=== PATIENT | female | born 1960 | race Caucasian/White ===

== ENCOUNTER 2016-12-12 11:04 | Emergency (ER) | payer MEDICARE, MEDICAID ==
[~2016-12-12] VITALS: Ht 147.3 cm; Wt 73.9 kg
[~2016-12-12 11:04] MED LIST: ALBU1.25 NEB; ALBU8.5H3 INH; PARO30TA45 PO
[2016-12-12 11:45] LABS: PATH.CAST-FLAG NOT PRESENT; SPERM-FLAG NOT PRESENT; SRC-FLAG NOT PRESENT; XTAL-FLAG NOT PRESENT; YLC-FLAG NOT PRESENT
[2016-12-12] MEDS ORDERED: SODIUM CHLORIDE FLUSH 10ML SYR IVF ONE (12:30)
[2016-12-12] MEDS ORDERED: SODIUM CHLORIDE 0.9% 1,000ML IVBOLUS ONE (12:30)
[2016-12-12] MEDS ORDERED: ONDANSETRON 2MG/ML, 2ML IVPush ONE (12:30)
[2016-12-12] MEDS ORDERED: ONDANSETRON 2MG/ML, 2ML ONE (13:03)
[2016-12-12] MEDS ORDERED: PARO20TA55 PO (13:09)
[2016-12-12 13:14] LABS: PATH.CAST-FLAG NOT PRESENT; SPERM-FLAG NOT PRESENT; SRC-FLAG NOT PRESENT; XTAL-FLAG NOT PRESENT; YLC-FLAG NOT PRESENT
[2016-12-12 13:25] LABS: HEMOGLOBIN 14.1 g/dL (11.7-16.4)
[2016-12-12 13:39] LABS: BLOOD UREA NITROGEN 16 mg/dL (7-18)
[2016-12-12 13:42] LABS: ASPARTATE AMINO TRANSFERASE 19 U/L (15-37)
[2016-12-12] MEDS ORDERED: OMNIPAQUE 350 MG/ML, 100ML BOTTLE ONE (15:52)
[2016-12-12 16:03] VITALS: BP 118/73
== END 2016-12-12 16:42 | disposition home or self-care (01) ==
LOC: ED 16:36
DX: N39.0 Urinary tract infection, site not specified (principal)
CPT/HCPCS: 36415; 74177; 80053; 81001; 83690; 85025; 87086; 96361; 96374; 99285; J2405; J7030; Q9967

== ENCOUNTER 2018-01-08 01:43 | Emergency (ER) | payer MEDICAID, MEDICARE ==
[~2018-01-08] VITALS: Ht 147.3 cm; Wt 75.9 kg
[~2018-01-08 01:43] MED LIST changes: -ALBU8.5H3 INH; +ALBU8.5H8 INH; +PARO20TA98 PO
[2018-01-08 01:45] VITALS: BP 125/79
[2018-01-08] MEDS ORDERED: ONDANSETRON ODT 8 MG PO ONE (02:00)
[2018-01-08] MEDS ORDERED: MAALOX/HYOSCYAMINE/LIDOCAINE 45 ML BTL PO ONE (02:00)
[2018-01-08] MEDS ORDERED: MAALOX/HYOSCYAMINE/LIDOCAINE 45 ML BTL ONE (02:02)
[2018-01-08] MEDS ORDERED: ONDANSETRON ODT 8 MG ONE (02:02)
== END 2018-01-08 02:14 | disposition home or self-care (01) ==
LOC: ED 02:06
DX: R11.2 Nausea with vomiting, unspecified (principal); R19.7 Diarrhea, unspecified; E78.00 Pure hypercholesterolemia, unspecified; F17.200 Nicotine dependence, unspecified, uncomplicated; Z90.49 Acquired absence of other specified parts of digestive tract
CPT/HCPCS: 99283; Q0162

== ENCOUNTER 2018-10-20 10:40 | Emergency (ER) | payer MEDICARE, MEDICAID ==
[~2018-10-20] VITALS: Ht 147.3 cm; Wt 73.0 kg
[2018-10-20 10:57] VITALS: BP 103/67
[2018-10-20] MEDS ORDERED: KETOROLAC 30 MG/1 ML ONE (11:10)
[2018-10-20] MEDS ORDERED: METHOCARBAMOL 750 MG TABLET ONE (11:10)
--- NOTE | 2018-10-20 11:16 | NUR ---
PT MEDICATED PER MAR FOR NECK PAIN. WILL CONTINUE TO MONITOR
[2018-10-20] MEDS ORDERED: METHOCARBAMOL 750 MG TABLET PO ONE (11:30)
[2018-10-20] MEDS ORDERED: KETOROLAC 30 MG/1 ML IM ONE (11:30)
== END 2018-10-20 12:08 | disposition home or self-care (01) ==
LOC: ED 11:36
DX: S39.012A Strain of muscle, fascia and tendon of lower back, initial encounter (principal); E78.5 Hyperlipidemia, unspecified; E78.00 Pure hypercholesterolemia, unspecified; M54.41 Lumbago with sciatica, right side; F17.200 Nicotine dependence, unspecified, uncomplicated; Z90.49 Acquired absence of other specified parts of digestive tract; Z90.710 Acquired absence of both cervix and uterus; X58.XXXA Exposure to other specified factors, initial encounter; Z88.5 Allergy status to narcotic agent; Y93.89 Activity, other specified; Y92.89 Other specified places as the place of occurrence of the external cause; Y99.8 Other external cause status
CPT/HCPCS: 72110; 73502; 96372; 99283; J1885; J7512

== ENCOUNTER 2018-12-05 00:40 | Emergency (ER) | payer MEDICARE, MEDICAID ==
[~2018-12-05] VITALS: Ht 147.3 cm; Wt 76.2 kg
[2018-12-05 00:43] VITALS: BP 132/85
[2018-12-05] MEDS ORDERED: ALBUTEROL SULFATE 2.5 MG/3 ML NPPB ONE (01:30)
[2018-12-05 01:32] LABS: BASOPHILS # (AUTO) 0.06 x10^3/uL (0-0.1); BASOPHILS % (AUTO) 1 % (0-1); EOSINOPHILS % (AUTO) 1 % (1-7); LYMPHOCYTES # (AUTO) 3.65 x10^3/uL (1-3.4); LYMPHOCYTES % (AUTO) 48 % (22-44); MD NO; MEAN CORPUSCULAR HEMOGLOBIN 31.3 pg (27.0-34.8); MEAN CORPUSCULAR HGB CONC 34.1 g/dL (32.4-35.8); MEAN CORPUSCULAR VOLUME 91.8 fL (80-100); MONOCYTES # (AUTO) 0.56 x10^3/uL (0.2-0.8); MONOCYTES % (AUTO) 7 % (2-9); NEUTROPHILS # (AUTO) 3.19 x10^3/uL (1.8-6.8); NEUTROPHILS % (AUTO) 42 % (42-75); PLATELET COUNT 282 x10^3/uL (130-400); RED BLOOD COUNT 4.34 x10^6/uL (3.82-5.3); RED CELL DISTRIBUTION WIDTH 13.2 % (9.6-15.2)
[2018-12-05 01:43] LABS: ALANINE AMINOTRANSFERASE 23 U/L (12-78); ALBUMIN 3.6 g/dL (3.4-5.0); ANION GAP 5 mmol/L (5-15); CALCIUM 8.5 mg/dL (8.5-10.1); CHLORIDE 108 mmol/L (98-107); CREATININE 0.72 mg/dL (0.55-1.02)
[2018-12-05 01:47] LABS: ALKALINE PHOSPHATASE 104 U/L (45-117); BILIRUBIN,TOTAL 0.1 mg/dL (0.2-1.0); TOTAL PROTEIN 6.5 g/dL (6.4-8.2); TROPONIN I < 0.015 ng/mL (0.000-0.045)
--- NOTE | 2018-12-05 02:14 | NUR ---
PT IN GOWN BLOOD AND URINE TO LAB AWAITING RESULTS AND ERP RECHECK.
[2018-12-05 02:22] LABS: MICROSCOPIC AUTO
[2018-12-05 02:30] LABS: CULTURE INDICATED? YES
== END 2018-12-05 02:55 | disposition home or self-care (01) ==
LOC: ED 02:53
DX: R05 Cough (principal); E78.5 Hyperlipidemia, unspecified; E78.00 Pure hypercholesterolemia, unspecified; Z90.49 Acquired absence of other specified parts of digestive tract; Z90.710 Acquired absence of both cervix and uterus; F17.200 Nicotine dependence, unspecified, uncomplicated
CPT/HCPCS: 36415; 71045; 80053; 81001; 83690; 84484; 85025; 87086; 93005; 94640; 99284; J7613

== ENCOUNTER 2019-09-30 19:28 | Emergency (ER) | payer MEDICAID, MEDICARE, OTHER ==
[~2019-09-30] VITALS: Ht 147.3 cm; Wt 75.9 kg
[2019-09-30 19:31] VITALS: BP 132/91
[2019-09-30] MEDS ORDERED: FAMOTIDINE 20 MG TABLET ONE (20:13)
[2019-09-30] MEDS ORDERED: ONDANSETRON ODT 4 MG ONE (20:13)
[2019-09-30] MEDS ORDERED: MAALOX/HYOSCYAMINE/LIDOCAINE 45 ML BTL ONE (20:13)
[2019-09-30 20:21] LABS: BASOPHILS % (AUTO) 0 % (0-1); EOSINOPHILS # (AUTO) 0.05 x10^3/uL (0-0.4); EOSINOPHILS % (AUTO) 1 % (1-7); LYMPHOCYTES # (AUTO) 1.73 x10^3/uL (1-3.4); LYMPHOCYTES % (AUTO) 21 % (22-44); MD NO; MEAN CORPUSCULAR HEMOGLOBIN 31.6 pg (27.0-34.8); MEAN CORPUSCULAR HGB CONC 34.2 g/dL (32.4-35.8); MEAN CORPUSCULAR VOLUME 92.4 fL (80-100); MEAN PLATELET VOLUME 6.7 fL (7.4-10.4); MONOCYTES # (AUTO) 0.45 x10^3/uL (0.2-0.8); MONOCYTES % (AUTO) 6 % (2-9); NEUTROPHILS # (AUTO) 5.94 x10^3/uL (1.8-6.8); NEUTROPHILS % (AUTO) 73 % (42-75); PLATELET COUNT 296 x10^3/uL (130-400)
[2019-09-30] MEDS ORDERED: FAMOTIDINE 20 MG TABLET PO ONE (20:30)
[2019-09-30] MEDS ORDERED: ONDANSETRON ODT 4 MG PO ONE (20:30)
[2019-09-30] MEDS ORDERED: MAALOX/HYOSCYAMINE/LIDOCAINE 45 ML BTL PO ONE (20:30)
[2019-09-30 20:31] LABS: ALANINE AMINOTRANSFERASE 23 U/L (12-78); ALBUMIN 3.8 g/dL (3.4-5.0); ANION GAP 4 mmol/L (5-15); CALCIUM 9.1 mg/dL (8.5-10.1); CHLORIDE 107 mmol/L (98-107); CREATININE 0.82 mg/dL (0.55-1.02)
[2019-09-30 20:34] LABS: ALKALINE PHOSPHATASE 97 U/L (45-117); BILIRUBIN,TOTAL 0.2 mg/dL (0.2-1.0); TOTAL PROTEIN 7.4 g/dL (6.4-8.2)
[2019-09-30 21:23] LABS: MICROSCOPIC AUTO
[2019-09-30 21:24] LABS: CULTURE INDICATED? YES
--- NOTE | 2019-09-30 21:39 | NUR ---
Pt here for upper left abd quadrant pain. Pt reports present for about 4 days. Pt reports nothing makes it better and she has been using medications to help. Pt resting in bed and medicated per emar. Ua walked to [facility] at [id number]. Awaiting further orders.
[2019-09-30] MEDS ORDERED: PANTOPRAZOLE 20MG TABLET ONE (22:29)
[2019-09-30] MEDS ORDERED: OXYcodone/APAP 10/325MG TABLET ONE (22:29)
[2019-09-30] MEDS ORDERED: PANTOPROZOLE 40MG TABLET PO ONE (22:30)
[2019-09-30] MEDS ORDERED: OXYcodone/APAP 10/325MG TABLET PO ONE (22:30)
--- NOTE | 2019-09-30 22:32 | NUR ---
pt medicated per emar.
--- NOTE | 2019-09-30 22:55 | NUR ---
Patient/Caregiver given discharge instructions and they have confirmed that they understand the instructions. Patient ambulatory with steady gait.
== END 2019-09-30 23:03 ==
LOC: ED 21:13
DX: K26.3 Acute duodenal ulcer without hemorrhage or perforation (principal); R11.2 Nausea with vomiting, unspecified; R19.7 Diarrhea, unspecified; Z90.49 Acquired absence of other specified parts of digestive tract
CPT/HCPCS: 36415; 80053; 81001; 83690; 85025; 87086; 99284; Q0162; 87077

== ENCOUNTER 2019-11-19 14:16 | Emergency (ER) | payer OTHER ==
[~2019-11-19] VITALS: Ht 147.3 cm; Wt 78.3 kg
[2019-11-19 15:38] VITALS: BP 148/74
[2019-11-19 15:38] LABS: BASOPHILS # (AUTO) 0.03 x10^3/uL (0-0.1); BASOPHILS % (AUTO) 1 % (0-1); EOSINOPHILS # (AUTO) 0.07 x10^3/uL (0-0.4); EOSINOPHILS % (AUTO) 1 % (1-7); LYMPHOCYTES # (AUTO) 2.29 x10^3/uL (1-3.4); LYMPHOCYTES % (AUTO) 34 % (22-44); MD NO; MEAN CORPUSCULAR HEMOGLOBIN 31.7 pg (27.0-34.8); MEAN CORPUSCULAR HGB CONC 33.8 g/dL (32.4-35.8); MEAN CORPUSCULAR VOLUME 93.7 fL (80-100); MEAN PLATELET VOLUME 6.9 fL (7.4-10.4); MONOCYTES # (AUTO) 0.42 x10^3/uL (0.2-0.8); MONOCYTES % (AUTO) 6 % (2-9); NEUTROPHILS % (AUTO) 59 % (42-75); PLATELET COUNT 312 x10^3/uL (130-400); RED BLOOD COUNT 4.49 x10^6/uL (3.82-5.3); RED CELL DISTRIBUTION WIDTH 14.2 % (9.6-15.2)
--- NOTE | 2019-11-19 15:38 | NUR ---
RESTING IN BED AWAITING XR/LAB RESULTS. SLIGHT EXP WHEEZES BILAT. RESTING COMFORTABLY, NAD, CALL JOHNSON IN REACH.
[2019-11-19 15:49] LABS: ALBUMIN 3.8 g/dL (3.4-5.0); ANION GAP 6 mmol/L (5-15); CALCIUM 9.8 mg/dL (8.5-10.1); CHLORIDE 108 mmol/L (98-107); CREATININE 0.59 mg/dL (0.55-1.02)
[2019-11-19 15:53] LABS: TROPONIN I < 0.015 ng/mL (0.000-0.045)
== END 2019-11-19 16:28 | disposition home or self-care (01) ==
LOC: ED 14:42
DX: J20.9 Acute bronchitis, unspecified (principal); B34.9 Viral infection, unspecified; E78.00 Pure hypercholesterolemia, unspecified; E78.5 Hyperlipidemia, unspecified; F17.200 Nicotine dependence, unspecified, uncomplicated; Z87.11 Personal history of peptic ulcer disease; Z90.49 Acquired absence of other specified parts of digestive tract; Z90.710 Acquired absence of both cervix and uterus
CPT/HCPCS: 36415; 71045; 80048; 82040; 84484; 85025; 93005; 99285

== ENCOUNTER 2020-07-14 10:20 | Emergency (ER) | payer BC, OTHER ==
[~2020-07-14] VITALS: Ht 147.3 cm; Wt 75.2 kg
[2020-07-14 10:24] VITALS: BP 133/98
[2020-07-14] MEDS ORDERED: KETOROLAC 30 MG/1 ML IM ONE (11:30)
[2020-07-14] MEDS ORDERED: KETOROLAC 30 MG/1 ML ONE (11:48)
--- NOTE | 2020-07-14 12:08 | NUR ---
pt reports pain at 8/10. medicated as ordered on eMAR.
--- NOTE | 2020-07-14 12:17 | NUR ---
REPORT BACK TO PRIMARY RNERIKA. PT RESTING IN POSITION OF COMFORT IN [facility].
== END 2020-07-14 13:21 | disposition home or self-care (01) ==
LOC: ED 11:30
DX: M25.551 Pain in right hip (principal); E78.00 Pure hypercholesterolemia, unspecified; E78.5 Hyperlipidemia, unspecified; F17.200 Nicotine dependence, unspecified, uncomplicated; J45.909 Unspecified asthma, uncomplicated; Z90.49 Acquired absence of other specified parts of digestive tract; Z90.710 Acquired absence of both cervix and uterus
CPT/HCPCS: 73502; 96372; 99283; J1885

== ENCOUNTER 2020-07-22 18:55 | Emergency (ER) | payer BC ==
[~2020-07-22] VITALS: Ht 134.6 cm; Wt 75.6 kg
[2020-07-22 19:42] VITALS: BP 133/62
--- NOTE | 2020-07-22 19:42 | NUR ---
PT CAME INTO ED FOR SORE ON HEAD, STATES "ITS A RASH BUT GOT BAD". PT NOTED TO BE REPEATEDLY ITCHING HEAD AT THIS TIME. PT NAD, RESTING ON GURNEY, BED IN LOWEST, CALL LIGHT ON LAP, TM.
--- NOTE | 2020-07-22 19:46 | NUR ---
Patient/Caregiver given discharge instructions and they have confirmed that they understand the instructions. Patient ambulatory with steady gait.
== END 2020-07-22 19:47 | disposition home or self-care (01) ==
LOC: ED 19:32
DX: L01.01 Non-bullous impetigo (principal); E78.5 Hyperlipidemia, unspecified; F17.200 Nicotine dependence, unspecified, uncomplicated; Z90.49 Acquired absence of other specified parts of digestive tract; Z90.710 Acquired absence of both cervix and uterus
CPT/HCPCS: 99283

== ENCOUNTER 2020-10-06 14:17 | Emergency (ER) | payer MEDICARE ==
[~2020-10-06] VITALS: Ht 147.3 cm; Wt 65.0 kg
--- NOTE | 2020-10-06 14:57 | NUR ---
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
--- NOTE | 2020-10-06 15:23 | NUR ---
pt states that she has luq abd pain that in also in her back. also states that her urine has a foul smell.
[2020-10-06 15:28] LABS: MICROSCOPIC AUTO
[2020-10-06 15:29] LABS: BASOPHILS % (AUTO) 1 % (0-1); EOSINOPHILS % (AUTO) 1 % (1-7); LYMPHOCYTES % (AUTO) 25 % (22-44); MEAN CORPUSCULAR HEMOGLOBIN 31.5 pg (27.0-34.8); MEAN CORPUSCULAR HGB CONC 33.9 g/dL (32.4-35.8); MEAN PLATELET VOLUME 7.3 fL (7.4-10.4); MONOCYTES % (AUTO) 7 % (2-9); NEUTROPHILS % (AUTO) 65 % (42-75); PLATELET COUNT 307 x10^3/uL (130-400); RED BLOOD COUNT 4.58 x10^6/uL (3.82-5.3); RED CELL DISTRIBUTION WIDTH 12.8 % (9.6-15.2)
[2020-10-06 15:31] LABS: MD NO
[2020-10-06 15:37] LABS: ALBUMIN 3.2 g/dL (3.4-5.0); CALCIUM 8.9 mg/dL (8.5-10.1)
[2020-10-06 15:43] LABS: ANION GAP 5 mmol/L (5-15); CHLORIDE 109 mmol/L (98-107)
[2020-10-06 16:31] VITALS: BP 108/70
--- NOTE | 2020-10-06 16:34 | NUR ---
pt walked out self. given rx, if s&s worsen return to the ER
== END 2020-10-06 16:37 | disposition home or self-care (01) ==
LOC: ED 16:20
DX: N30.00 Acute cystitis without hematuria (principal); E87.6 Hypokalemia
CPT/HCPCS: 36415; 80048; 81001; 82040; 85025; 87086; 99283

== ENCOUNTER 2020-12-22 05:37 | Day surgery (SDC) | payer MEDICARE, MEDICAID ==
[~2020-12-22] VITALS: Ht 147.3 cm; Wt 66.0 kg
[~2020-12-22 05:37] MED LIST changes: +QUET50TA5 PO
[2020-12-22 06:04] VITALS: BP 112/73
[2020-12-22] MEDS ORDERED: CHLORHEXIDINE 15 ML UDC ONE (06:09)
[2020-12-22] MEDS ORDERED: EPINEPHRINE 1 MG/ML, 1ML ONE (06:22)
[2020-12-22] MEDS ORDERED: BUPIVACAINE/PF 0.5% ONE (06:22)
[2020-12-22] MEDS ORDERED: CHLORHEXIDINE 15 ML UDC PO ONE (06:30)
[2020-12-22] MEDS ORDERED: LACTATED RINGERS 1,000 ML IV SCH (06:30)
[2020-12-22] MEDS ORDERED: SODIUM CHLORIDE 0.9% PF 10ML ONE (06:42)
[2020-12-22] MEDS ORDERED: FENTANYL PF 100 MCG/2ML ONE (06:42)
[2020-12-22] MEDS ORDERED: MIDAZOLAM 1 MG/ML, 2ML ONE (06:42)
[2020-12-22] MEDS ORDERED: KETOROLAC 30 MG/1 ML ONE (06:56)
[2020-12-22] MEDS ORDERED: PROPOFOL 10 MG/ML, 20ML ONE (06:59)
[2020-12-22] MEDS ORDERED: CEFAZOLIN 1,000 MG ONE (06:59)
[2020-12-22] MEDS ORDERED: DEXAMETHASONE 4 MG/ML, 1ML ONE (06:59)
[2020-12-22] MEDS ORDERED: ONDANSETRON 2MG/ML, 2ML ONE (06:59)
[2020-12-22] MEDS ORDERED: LABETALOL 5MG/ML, 20ML IV PRN (07:00)
[2020-12-22] MEDS ORDERED: PROMETHAZINE 25 MG/ML, 1ML IVPush PRN (07:00)
[2020-12-22] MEDS ORDERED: ACETAMINOPHEN 325 MG TABLET PO PRN (07:00)
[2020-12-22] MEDS ORDERED: hydrALAzine 20 MG/ML, 1ML IV PRN (07:00)
[2020-12-22] MEDS ORDERED: ONDANSETRON 2MG/ML, 2ML IVPush PRN (07:00)
[2020-12-22] MEDS ORDERED: FENTANYL PF 100 MCG/2ML IV PRN (07:00)
[2020-12-22] MEDS ORDERED: EPHEDRINE 50 MG/ML, 1ML IVPush PRN (07:00)
[2020-12-22] MEDS ORDERED: morphine SULFATE 10 MG/ML, 1ML IVPush PRN (07:00)
[2020-12-22] MEDS ORDERED: EPHEDRINE 50 MG/ML, 1ML ONE (07:21)
[2020-12-22] MEDS ORDERED: HYDROcodone/APAP 7.5-325MG/15ML UDC ONE (08:27)
[2020-12-22] MEDS: HYDROcodone/APAP 7.5-325MG/15ML UDC PO PRN ×2 (08:30→09:24)
== END 2020-12-22 11:01 | disposition home or self-care (01) ==
LOC: OUT 05:37
PROVIDERS: ATTEND Orthopaedic Surgery
DX: M65.331 Trigger finger, right middle finger (principal); M19.041 Primary osteoarthritis, right hand; G47.33 Obstructive sleep apnea (adult) (pediatric); J45.909 Unspecified asthma, uncomplicated; Z20.822 Contact with and (suspected) exposure to COVID-19; Z79.899 Other long term (current) drug therapy; Z88.5 Allergy status to narcotic agent; Z88.8 Allergy status to other drugs, medicaments and biological substances; Z91.040 Latex allergy status; Z98.1 Arthrodesis status; Z82.61 Family history of arthritis
CPT/HCPCS: 26055; 26860; 26861; 73120; 93005; C1713; J0171; J0690; J1100; J1885; J2250; J2405; J2704; J3010; J7120; U0003; 76000